=== PATIENT | female | born 1980 | race African-American/Black ===

== ENCOUNTER 2019-11-07 22:50 | Emergency (ER) | payer MEDICAID ==
[~2019-11-07] VITALS: Ht 180.3 cm; Wt 108.0 kg
[2019-11-08 00:53] LABS: BASOPHILS % 0.2 % (0.0-2.0); EOSINOPHILS % 1.1 % (0.0-5.0); HEMATOCRIT. 35.3 % (36.0-48.0); HEMOGLOBIN. 11.5 g/dL (12.0-16.0); LYMPHOCYTES % 34.1 % (20.0-50.0); MEAN CORPUSCULAR HEMOGLOBIN 27.9 pg (28.0-32.0); MEAN PLATELET VOLUME 7.8 fl (7.4-10.4); MONOCYTES % 11.4 % (2.0-8.0); NEUTROPHILS % 53.2 % (40.0-76.0); PLATELET 278 x1000/uL (130-400); RED BLOOD CELL COUNT 4.11 mill/uL (4.2-5.4); RED CELL DISTRIBUTION WIDTH 16.9 % (11.6-14.6)
[2019-11-08 00:56] LABS: CHLORIDE 107 mEq/L (98-107)
[2019-11-08 01:08] LABS: B-HCG QUANTITATIVE < 1 mIU/mL (<3)
[2019-11-08 01:12] LABS: CLARITY URINE CLEAR (CLEAR); COLOR URINE YELLOW (YELLOW); KETONES URINE TRACE (NEGATIVE); LEUKOCYTE ESTERASE URINE NEGATIVE (NEGATIVE); NITRITE URINE NEGATIVE (NEGATIVE); OCCULT BLOOD URINE NEGATIVE (NEGATIVE); PROTEIN URINE NEGATIVE (NEGATIVE); SPECIFIC GRAVITY URINE 1.024 (1.005-1.030)
[2019-11-08 03:32] VITALS: BP 137/101
== END 2019-11-08 04:35 | disposition home or self-care (01) ==
LOC: ER 22:50
DX: N94.6 Dysmenorrhea, unspecified (principal); D25.9 Leiomyoma of uterus, unspecified; N83.209 Unspecified ovarian cyst, unspecified side; I10 Essential (primary) hypertension; Z88.6 Allergy status to analgesic agent; Z88.5 Allergy status to narcotic agent
CPT/HCPCS: 36415; 76830; 76856; 80053; 81003; 81025; 84702; 85025; 99284; Z7610

== ENCOUNTER 2021-03-08 21:51 | Emergency (ER) | payer MEDICAID ==
[~2021-03-08] VITALS: Ht 177.8 cm; Wt 95.0 kg
[2021-03-08 21:52] VITALS: BP 146/94
== END 2021-03-08 22:30 | disposition left against medical advice (07) ==
LOC: ER 21:51
DX: R10.9 Unspecified abdominal pain (principal); Z53.21 Procedure and treatment not carried out due to patient leaving prior to being seen by health care provider
CPT/HCPCS: 93005

== ENCOUNTER 2022-01-04 22:23 | Emergency (ER) | payer MEDICAID ==
[~2022-01-04] VITALS: Ht 180.3 cm; Wt 108.0 kg
[2022-01-04 23:16] LABS: BASOPHILS % 0.9 % (0.0-2.0); EOSINOPHILS % 1.6 % (0.0-5.0); HEMATOCRIT. 40.6 % (36.0-48.0); HEMOGLOBIN. 13.5 g/dL (12.0-16.0); LYMPHOCYTES % 54.8 % (20.0-50.0); MEAN CORPUSCULAR HEMOGLOBIN 30.3 pg (28.0-32.0); MEAN CORPUSCULAR VOLUME 91.1 fL (81.0-99.0); MEAN PLATELET VOLUME 7.6 fl (7.4-10.4); MONOCYTES % 6.2 % (2.0-8.0); NEUTROPHILS % 36.5 % (40.0-76.0); PLATELET 243 x1000/uL (130-400); RED BLOOD CELL COUNT 4.46 mill/uL (4.2-5.4); RED CELL DISTRIBUTION WIDTH 15.5 % (11.6-14.6)
[2022-01-04 23:22] LABS: CHLORIDE 110 mEq/L (98-107)
[2022-01-04 23:58] LABS: HCG SCREEN NEGATIVE
[2022-01-05] MEDS ORDERED: OLANZAPINE 10 MG/VIAL IM ONE
[2022-01-05 00:05] LABS: ETHANOL BLOOD 312 mg/dL
[2022-01-05 00:49] LABS: *BARBITURATES SCREEN URINE NEGATIVE (NEGATIVE); CANNABINOID URINE SCREEN NEGATIVE (NEGATIVE)
[2022-01-05 00:50] LABS: *AMPHETAMINES SCREEN URINE NEGATIVE (NEGATIVE); *BENZODIAZEPINES SCREEN URINE NEGATIVE (NEGATIVE); OPIATES URINE SCREEN NEGATIVE (NEGATIVE)
[2022-01-05 00:51] LABS: *COCAINE SCREEN URINE NEGATIVE (NEGATIVE); METHADONE URINE SCREEN NEGATIVE (NEGATIVE); PHENCYCLIDINE URINE SCREEN NEGATIVE (NEGATIVE)
[2022-01-05] MEDS ORDERED: ONDA4TAB5 MT (11:23)
[2022-01-05 12:26] VITALS: BP 123/75
== END 2022-01-05 12:30 | disposition home or self-care (01) ==
LOC: ER 22:23
DX: F10.129 Alcohol abuse with intoxication, unspecified (principal); Y90.8 Blood alcohol level of 240 mg/100 ml or more; I10 Essential (primary) hypertension; Z98.890 Other specified postprocedural states; Z20.822 Contact with and (suspected) exposure to COVID-19
CPT/HCPCS: 36415; 80053; 80305; 80307; 80320; 80329; 84703; 85025; 93005; 96372; 99285; C9803; J3490; U0003; U0005; Z7610; G0480

== ENCOUNTER 2023-02-25 05:28 | Inpatient (IN) | payer MEDICAID ==
[~2023-02-25] VITALS: Ht 180.3 cm; Wt 89.8 kg
[~2023-02-25 05:28] MED LIST: ONDA4TAB5 MT
[2023-02-25] MEDS ORDERED: ONDANSETRON 4MG ODT PO ONE (07:00)
[2023-02-25] MEDS ORDERED: FAMOTIDINE 20MG TABLET PO ONE (07:00)
[2023-02-25] MEDS ORDERED: MAGNESIUM/ALUMINUM HYDROXIDE/SIMETHICONE 30ML UDC PO ONE (07:00)
[2023-02-25] MEDS ORDERED: SODIUM CHLORIDE 0.9% 1,000 ML IV ONE ×3 (08:00→13:30)
[2023-02-25 08:28] LABS: HEMOGLOBIN. 14.2 g/dL (12.0-16.0); MEAN CORPUSCULAR HEMOGLOBIN 32.2 pg (28.0-32.0); MEAN CORPUSCULAR VOLUME 95.2 fL (81.0-99.0); MEAN PLATELET VOLUME 8.3 fl (7.4-10.4); PLATELET 223 x1000/uL (130-400); RED BLOOD CELL COUNT 4.41 mill/uL (4.2-5.4); RED CELL DISTRIBUTION WIDTH 15.9 % (11.6-14.6)
[2023-02-25 08:32] LABS: CHLORIDE 97 mEq/L (98-107)
[2023-02-25 09:24] LABS: PLATELET ESTIMATE NORMAL
[2023-02-25] MEDS ORDERED: VISCOUS LIDOCAINE 2% 15 ML UDC MM STA (12:08)
[2023-02-25] MEDS ORDERED: DICYCLOMINE HCL 10MG CAPSULE PO ONE (12:15)
[2023-02-25] MEDS ORDERED: ASPIRIN 325MG EC TABLET PO NR (15:15)
[2023-02-25] MEDS ORDERED: VANCOMYCIN HCL 1 GM/VIAL PO SCH (15:15)
[2023-02-25] MEDS ORDERED: CEFTRIAXONE 1GM PREMIX 50 ML IV NR (15:15)
[2023-02-25] MEDS ORDERED: METOPROLOL TARTRATE 25MG TABLET PO NR (15:15)
[2023-02-25] MEDS ORDERED: METRONIDAZOLE 500 MG PREMIX 100 ML IV NR (15:15)
[2023-02-25] MEDS ORDERED: VANCOMYCIN 1000MG/20ML ORAL SOLN PO NR (15:30)
[2023-02-25] MEDS ORDERED: ONDANSETRON HCL 4MG/2ML INJ IV ONE ×2 (16:15→18:15)
[2023-02-25 16:56] LABS: CLARITY URINE CLEAR (CLEAR); COLOR URINE YELLOW (YELLOW); KETONES URINE NEGATIVE (NEGATIVE); LEUKOCYTE ESTERASE URINE TRACE (NEGATIVE); NITRITE URINE NEGATIVE (NEGATIVE); OCCULT BLOOD URINE 1+ (NEGATIVE); PH URINE 5.5 (4.5-8.0); PROTEIN URINE TRACE (NEGATIVE); SPECIFIC GRAVITY URINE 1.015 (1.005-1.030)
[2023-02-25] MEDS ORDERED: MORPHINE SULFATE 2 MG/ML CPJ (NOT FOR IM USE) IV NR (17:30)
[2023-02-25] MEDS ORDERED: ENOXAPARIN 100MG/ML SYR SUBCUT NR (19:00)
[2023-02-25] MEDS ORDERED: ACETAMINOPHEN 325MG TABLET PO ONE (19:30)
[2023-02-25 23:00] VITALS: BP 96/61
[2023-02-25] MEDS ORDERED: QUET25TA PO (23:32)
[2023-02-25] MEDS ORDERED: ACETAMINOPHEN 650MG/20.3ML UDC PO PRN (23:45)
[2023-02-25] MEDS ORDERED: ONDANSETRON HCL 4MG/2ML INJ IV PRN (23:45)
[2023-02-26] VITALS: BP 103/66
[2023-02-26] MEDS: ACETAMINOPHEN 325MG TABLET PO PRN ×2 (00:04→13:52)
[2023-02-26] MEDS: ZOLPIDEM TARTRATE 5MG TABLET PO PRN ×2 (00:04→20:40)
[2023-02-26] MEDS ORDERED: VANCOMYCIN 1500MG in DEXTROSE 5% WATER 250ML IV NR (01:00)
[2023-02-26 04:00] VITALS: BP 105/72
[2023-02-26 07:32] LABS: HEMATOCRIT. 35.2 % (36.0-48.0); HEMOGLOBIN. 12.2 g/dL (12.0-16.0); MEAN CORPUSCULAR HEMOGLOBIN 32.8 pg (28.0-32.0); MEAN CORPUSCULAR VOLUME 95.1 fL (81.0-99.0); MEAN PLATELET VOLUME 9.2 fl (7.4-10.4); PLATELET 136 x1000/uL (130-400); RED CELL DISTRIBUTION WIDTH 15.9 % (11.6-14.6)
[2023-02-26 08:06] VITALS: BP 92/66
[2023-02-26] MEDS: ENOXAPARIN 100MG/ML SYR SUBCUT SCH ×2 (08:45→20:41)
[2023-02-26] MEDS ORDERED: ENOXAPARIN 80MG/0.8ML SYR SUBCUT SCH (09:00)
[2023-02-26 09:12] LABS: CHLORIDE 103 mEq/L (98-107)
[2023-02-26] MEDS ORDERED: VANCOMYCIN 750MG PREMIX 150 ML IV SCH (10:00)
[2023-02-26] MEDS ORDERED: VANCOMYCIN 1250MG in DEXTROSE 5% WATER 250ML IV SCH (11:00)
[2023-02-26 12:09] VITALS: BP 102/48
[2023-02-26] MEDS ORDERED: POTASSIUM CHLORIDE 20MEQ TABLET SR PO NR (13:45)
[2023-02-26 14:07] LABS: PLATELET ESTIMATE NORMAL
[2023-02-26 16:00] VITALS: BP 89/69
[2023-02-26 20:00] VITALS: BP 98/57
[2023-02-26] MEDS: PIPERACILLIN/TAZOBACTAM 3.375 G in DEXTROSE 5% WATER 50 ML IV SCH (20:42)
[2023-02-27] VITALS: BP 99/63
[2023-02-27 04:00] VITALS: BP 89/54
[2023-02-27] MEDS: PIPERACILLIN/TAZOBACTAM 3.375 G in DEXTROSE 5% WATER 50 ML IV SCH ×3 (05:23→22:09)
[2023-02-27 07:15] LABS: HEMATOCRIT. 33.6 % (36.0-48.0); HEMOGLOBIN. 11.8 g/dL (12.0-16.0); MEAN CORPUSCULAR HEMOGLOBIN 33.5 pg (28.0-32.0); MEAN CORPUSCULAR VOLUME 95.5 fL (81.0-99.0); MEAN PLATELET VOLUME 9.1 fl (7.4-10.4); PLATELET 137 x1000/uL (130-400); RED BLOOD CELL COUNT 3.52 mill/uL (4.2-5.4); RED CELL DISTRIBUTION WIDTH 15.5 % (11.6-14.6)
[2023-02-27 07:18] LABS: PROTHROMBIN TIME 10.7 sec (9.6-11.0)
[2023-02-27 07:25] LABS: CHLORIDE 105 mEq/L (98-107)
[2023-02-27 07:36] LABS: TOTAL IRON BINDING CAPACITY 190 ug/dL (250-450)
[2023-02-27 08:00] VITALS: BP 96/64
[2023-02-27 08:05] LABS: FOLIC ACID (FOLATE) SERUM 2.8 ng/mL (>5.38)
[2023-02-27] MEDS: ENOXAPARIN 100MG/ML SYR SUBCUT SCH ×2 (08:44→20:49)
[2023-02-27] MEDS ORDERED: POTASSIUM CHLORIDE 20MEQ TABLET SR PO NR ×2 (09:30→12:30)
[2023-02-27 12:00] VITALS: BP 101/67
[2023-02-27 13:03] LABS: PLATELET ESTIMATE NORMAL
[2023-02-27] MEDS: AZITHROMYCIN 500 MG TABLET PO SCH (15:36)
[2023-02-27 16:00] VITALS: BP 98/69
[2023-02-27] MEDS ORDERED: METOCLOPRAMIDE HCL 10MG/2ML VIAL IV NR ×2 (18:15→20:15)
[2023-02-27] MEDS ORDERED: BISACODYL 5MG TABLET PO NR ×2 (18:15→20:15)
[2023-02-27] MEDS ORDERED: SORBITOL 70% SOLN 30ML PO NR ×2 (18:45→20:45)
[2023-02-27 20:00] VITALS: BP 114/68
[2023-02-28 00:55] VITALS: BP 104/66
[2023-02-28 03:00] LABS: BASOPHILS % 0.3 % (0.0-2.0); EOSINOPHILS % 2.6 % (0.0-5.0); HEMATOCRIT. 35.6 % (36.0-48.0); LYMPHOCYTES % 21.1 % (20.0-50.0); MEAN CORPUSCULAR VOLUME 95.3 fL (81.0-99.0); MEAN PLATELET VOLUME 8.6 fl (7.4-10.4); MONOCYTES % 5.8 % (2.0-8.0); NEUTROPHILS % 70.2 % (40.0-76.0); PLATELET 192 x1000/uL (130-400); RED BLOOD CELL COUNT 3.74 mill/uL (4.2-5.4)
[2023-02-28 03:07] LABS: PROTHROMBIN TIME 10.7 sec (9.6-11.0)
[2023-02-28 03:17] LABS: CHLORIDE 111 mEq/L (98-107)
[2023-02-28 04:00] VITALS: BP 107/76
[2023-02-28] MEDS: PIPERACILLIN/TAZOBACTAM 3.375 G in DEXTROSE 5% WATER 50 ML IV SCH ×2 (05:44→08:33)
[2023-02-28 08:00] VITALS: BP 127/67
[2023-02-28] MEDS: AZITHROMYCIN 500 MG TABLET PO SCH (08:32)
[2023-02-28] MEDS: ENOXAPARIN 100MG/ML SYR SUBCUT SCH (08:33)
[2023-02-28] MEDS ORDERED: FOLIC ACID 1MG TABLET PO SCH (09:00)
[2023-02-28 12:00] VITALS: BP 113/73
[2023-02-28] MEDS ORDERED: KCL 20MEQ/100ML PREMIX 100 ML IV NR (12:00)
[2023-02-28 12:40] LABS: UCG SCREEN NEGATIVE
[2023-02-28] MEDS ORDERED: EPHEDRINE SULFATE 50MG/ML VIAL ONE (13:13)
[2023-02-28] MEDS ORDERED: PROPOFOL 200MG/20ML VIAL IV ONE ×2 (13:13→13:53)
[2023-02-28] MEDS ORDERED: MIDAZOLAM HCL 2 MG/2 ML VIAL ONE (13:13)
[2023-02-28] MEDS ORDERED: PHENYLEPHRINE HCL 10 MG/ML 1ML (IV VIAL) IV ONE (13:13)
[2023-02-28] MEDS ORDERED: LIDOCAINE HCL 1% 10 MG/ML 10ML VIAL ONE (13:13)
[2023-02-28] MEDS ORDERED: SODIUM CHLORIDE 0.9% 10ML VIAL ONE (13:14)
[2023-02-28 16:00] VITALS: BP 108/65
[2023-02-28 18:05] VITALS: BP 108/65
== END 2023-02-28 19:15 | disposition home or self-care (01) | DRG 249 ==
LOC: ER 05:28 → 7WST 19:23
PROVIDERS: ADMIT Internal Medicine; ATTEND Internal Medicine
PROC: 0DBE8ZX Excision of Large Intestine, Via Natural or Artificial Opening Endoscopic, Diagnostic (ICD-10-PCS; principal; 2023-02-28)
DX: K52.9 Noninfective gastroenteritis and colitis, unspecified (principal); E87.1 Hypo-osmolality and hyponatremia; I95.9 Hypotension, unspecified; K63.9 Disease of intestine, unspecified; K64.8 Other hemorrhoids; D25.9 Leiomyoma of uterus, unspecified; D50.9 Iron deficiency anemia, unspecified; D72.825 Bandemia; E87.6 Hypokalemia; I10 Essential (primary) hypertension; K64.9 Unspecified hemorrhoids; Z20.822 Contact with and (suspected) exposure to COVID-19; E53.8 Deficiency of other specified B group vitamins; F41.9 Anxiety disorder, unspecified; F32.A Depression, unspecified; Z98.84 Bariatric surgery status; Z88.8 Allergy status to other drugs, medicaments and biological substances
CPT/HCPCS: 36415; 74177; 76830; 76856; 80048; 80053; 80202; 81003; 81025; 82607; 82728; 82746; 83540; 83550; 83605; 84132; 85025; 86850; 86900; 87015; 87045; 87426; 87427; 87449; 87493; 88305; 99285; J0696; J1650; J2250; J2270; J2370; J2405; J2543; J2704; J2765; J3370; J3480; J3490; J7030; J7060; Q0162